=== PATIENT | male | born 1950 | race Caucasian/White ===

== ENCOUNTER 2020-04-13 14:45 | Emergency (ER) | payer SELFPAY ==
[~2020-04-13] VITALS: Ht 167.6 cm; Wt 80.7 kg
[~2020-04-13 14:45] MED LIST: CIPR500T4; TAMS0.4C96
[2020-04-13 14:57] VITALS: BP 137/76
[2020-04-13 15:12] VITALS: BP 137/76
== END 2020-04-13 16:29 | disposition home or self-care (01) ==
LOC: MED 14:45
DX: T14.90XA Injury, unspecified, initial encounter (principal); V49.9XXA Car occupant (driver) (passenger) injured in unspecified traffic accident, initial encounter; Y93.89 Activity, other specified; Y92.89 Other specified places as the place of occurrence of the external cause; Y99.8 Other external cause status; Z79.899 Other long term (current) drug therapy
CPT/HCPCS: 99283